=== PATIENT | male | born 1980 | race African-American/Black ===

== ENCOUNTER 2017-10-16 09:51 | Emergency (ER) | payer BC ==
[~2017-10-16] VITALS: Ht 175.3 cm; Wt 95.7 kg
[2017-10-16 10:05] VITALS: BP 153/90; Ht 175.3 cm; Wt 95.7 kg
== END 2017-10-16 11:04 | disposition home or self-care (01) ==
LOC: ED 09:51
DX: S39.012A Strain of muscle, fascia and tendon of lower back, initial encounter (principal); Z88.0 Allergy status to penicillin; X58.XXXA Exposure to other specified factors, initial encounter; Y93.89 Activity, other specified; Y92.89 Other specified places as the place of occurrence of the external cause; Y99.8 Other external cause status
CPT/HCPCS: J1885